=== PATIENT | female | born 1975 | race Caucasian/White ===

== ENCOUNTER → 2018-11-16 | Outpatient (CLI) | payer OTHER ==
[~2018-11-16] VITALS: Ht 170.2 cm; Wt 79.4 kg
[~2018-11-16] MED LIST: IBUPROFEN 800800 M1 PO; LYRICA 75 MG CA75 MG PO; NEURONTIN 300300 M1 PO; XANAX 0.25 MG0.25 MG PO
--- NOTE | ~2018-11-16 | HPC ---
[facility] [address] [place] [address] PAIN MANAGEMENT CONSULTATION Name: MARGARITA BLACK Room #: REG Glo Kyle.#: [id number] Admission: 11/16/18 ������������������ Attend Phys: Ron Goncalves DO Discharge: ������������������ Date of : 77 Report #: [id number] THIS REPORT FOR: //name// CC: [facility] physician/PCP Ron Edwards DATE OF SERVICE: 11/16/2018 CHIEF COMPLAINT: Neck pain, left upper extremity pain with paresthesias. HISTORY OF PRESENT ILLNESS: As you know, the patient is a 43-year-old female who reports acute onset of neck pain, left upper extremity pain and paresthesias began on 06/19/2018. She has sought evaluation through Orthopedics who advised the patient the symptoms are not related to an orthopedic issue and believed to be due to cervical radicular symptoms. She was sent subsequently for imaging of the cervical spine, which shows some changes at the C5-C6 and C6-C7 levels. This was done on 08/05/2018. She has been trying [id number] medication therapy and physical therapy without much improvement. She continues to describe pain that is up to a level of 9/10. Due to lack of improvement with conservative treatments, she was subsequently referred to our clinic to discuss treatment options for suspected cervical radiculopathy. The patient indicates pain is steady and intermittent. Describes the pain as burning, aching and crushing. Places current pain score 3-4/10, daily average of 3-4/10. Worst pain has been is 9/10. The patient states that stress, insomnia and repetitive motions tend to exacerbate symptoms. Physical therapy, traction and gabapentin tend to improve pain. She has been referred to our clinic to discuss potential treatment options for cervical radiculopathy. PAST MEDICAL HISTORY: 1. Degenerative joint disease. 2. Osteoarthritis. 3. Tobacco habituation. PAST SURGICAL HISTORY: 1. Appendectomy in 1996. 2. Excision of a fibroid in 2015. SOCIAL HISTORY: The patient continues to smoke 4 cigarettes per day and has done so for greater than 20 years. She denies significant use of illicit substances, but does report recent use of marijuana. She indicates 6 alcohol beverages per week. The patient is currently employed as a claim handler. She is working, not receiving workmen's compensation nor is she trying to obtain disability benefits. She is not in litigation in regards to pain. [address] [address] PAIN MANAGEMENT CONSULTATION Name: MARGARITA BLACK Room #: REG MARISABELGlo Rice#: [id number] Admission: 11/16/18 ������������������ Attend Phys: Ron Goncalves DO Discharge: ������������������ Date of : 77 Report #: [id number] REVIEW OF SYSTEMS: Positive for wearing corrective eyewear, painful menses, irregular menses, breast pain, numbness and tingling sensations and neck pain. All other review of systems negative per 12-point review of systems other than those listed in history of present illness. Pain impact score 20/70 indicating mild interference of daily activities secondary to pain. ALLERGIES: No known drug allergies. CURRENT MEDICATIONS: Ibuprofen 800 mg t.i.d., alprazolam 0.25 mg p.r.n., gabapentin 300 mg 3 times a day. IMAGING: MRI cervical spine obtained, 08/05/2018, shows C2-C3 unremarkable, C3-C4, C4-C5 unremarkable. C5-C6 shows moderate broad-based disk bulge touching without indenting the spinal cord with mild central canal stenosis measuring 8 mm. There is moderate bilateral neural foraminal stenosis due to uncovertebral hypertrophy. At C6-C7, mild degenerative disk bulge effacing the ventral thecal sac without touching spinal cord, mild central canal stenosis measuring 9 mm, mild neural foraminal narrowing bilaterally due to uncovertebral hypertrophy. PHYSICAL EXAMINATION: VITAL SIGNS: Blood pressure 104/84, pulse 84, respiratory rate 16 and unlabored. The patient is 97% on room air. Height 5 feet 7 inches tall, weight 175 pounds, BMI calculated 27.4. GENERAL: Well-developed, well-nourished, well-hydrated 43-year-old female, appears her stated age. She is placing current pain score 3-4/10. HEENT: Normocephalic, atraumatic. Pupils equal, round, reactive to light. Extraocular muscles are intact. Sclerae nonicteric without injection. NEUROLOGIC: Cranial nerves 2-12 grossly intact. Speech fluent. The patient deemed a good historian. LUNGS: Clear. No wheezes, rhonchi. No rales. CARDIOVASCULAR: Regular. No appreciable gallop, no rub. ABDOMEN: Soft, nontender, nondistended, normoactive bowel sounds. EXTREMITIES: Show no clubbing, no cyanosis, and no edema. MUSCULOSKELETAL: Upper extremity strength equal and symmetrical, 5/5. She is intact to light touch from C5 to T1 dermatomes. Spurling test is positive left, negative right. Cervical traction causes decrease in overall pain. Muscle bulk and tone are symmetrical in comparing left upper extremity to right. Deep tendon reflexes at biceps, brachialis and triceps equal and symmetrical. ASSESSMENT: 1. Cervical radiculopathy. 2. Displacement of cervical intervertebral disk with radiculopathy. 3. Cervical spondylosis with radiculopathy. 4. Cervical degeneration. [address] [place] [address] PAIN MANAGEMENT CONSULTATION Name: MARGARITA BLACK Room #: REG [facility].#: [id number] Admission: 11/16/18 ������������������ Attend Phys: Ron Goncalves DO Discharge: ������������������ Date of : 77 Report #: [id number] 5. Chronic intractable pain. PLAN: 1. Based on today's physical exam and history the patient provides, the description the patient uses in regards to pain as well as the distribution of symptoms, likely source of the patient's pain is cervical radiculopathy. Findings of the examination do correlate to the findings noted at the C5-C6 level with distribution of symptoms along what appears to be the C6 dermatome on the left. We discussed with the patient the treatment options we have available for cervical radiculopathy. The following was discussed with the patient today: We discussed physical therapy, stretching exercises and traction techniques to continue. The patient has been doing these prior and these could be reinitiated and continued for analgesic benefit. She states the traction techniques do work well, but only provide transient improvement. We discussed medication management, escalating her dose of gabapentin or transitioning the patient to Lyrica, amitriptyline, nortriptyline or possibly even Cymbalta. The patient is concerned about medications due to a perceived weight gain with gabapentin. We discussed cervical epidural injections for which the patient was referred to our clinic and ultimately surgical decompression at the C5-C6 level. After reviewing the risks and benefits of all the proposed treatment options, the patient chose to move forward with a cervical epidural injection under fluoroscopic guidance. 2. The patient was advised that due to third constitution party payer restrictions, authorization will be necessary before the patient could undergo first in the series of cervical epidural injections. The patient was advised the preauthorization could take anywhere from 4-7 working days. We begin this process immediately. Once the patient has received authorization to undergo the procedure, we will have her return to undergo the first in a series of cervical epidural injections. 3. We discussed with the patient the use of gabapentin. She states that she believes she may have gained some weight with the medication, though I did advise the patient the medication itself has very few calories. Only 2 ways to gain weight with gabapentin or any of the neuropathic medications is either water retention which has been noted with gabapentin and Lyrica or increasing intake of calories. The patient indicates that she has not increased her caloric intake and thus believes this is more of a water gain issue. This is simply resolved by discontinuing the medication, though at this point I would recommend she continue the use until we are able to have the patient undergo first in a series of cervical epidural injection, at that time adjustments can be suggested. 4. We wish to thank the referring physician for the opportunity to see this patient in consultation. We will see her back once we have received authorization for her to undergo the first in a series of cervical epidural [address] [address] PAIN MANAGEMENT CONSULTATION Name: MARGARITA BLACK Room #: REG LEROY Rice#: [id number] Admission: 11/16/18 ������������������ Attend Phys: Ron Goncalves DO Discharge: ������������������ Date of : 77 Report #: [id number]. Again, we wish to thank you for the opportunity to see this patient in consultation. ��������������������������������������������� ���������������������������������������� By: ��������������������������������������������� 0812 [id number] Ron Goncalves DO /nt
[2018-11-16 12:47] VITALS: BP 104/84
--- NOTE | 2018-11-16 13:07 | NUR ---
Pain Clinic Assessment: 1. History of Osteoarthritis: NECK History of Rheumatoid Arthritis: NONE 2. Height: 5 ft. 7 in. 170.2 cm. Weight: 175.0 lb. oz. 79.380 kg. Patient's BMI: 27.4 3. Vital Signs: BP: 104/84 Pulse: 84 Resp: 16 Temp: 02 Sat: 97 ECG Mon: 4. Pain Intensity: 3-4 5. Fall Risk: Dizziness: N Needs help standing or walking: N Fallen in the last 3 months: N Fall risk comments: 6. Patient on Blood Thinner: None 7. History of Hypertension: N 8. Opioid Therapy greater than 6 weeks: Opiate Contract Signed: 9. Risk Assessment Tool Provided: 10. Functional Assessment Tool: 11. Recreational Drug Use: Current within past 3 mos Drug Type: MARIJUANA Tobacco Use: Current Every Day Smoker Tobacco Type: Cigarettes Amount or Packs/day: 3-4CIGARETTE How Many Years: 20 Alcohol Use: Yes Frequency: Weekly Quant: 1-2
== END ==
LOC: PAIN 12:19
DX: M19.90 Unspecified osteoarthritis, unspecified site (principal); F17.210 Nicotine dependence, cigarettes, uncomplicated; Z90.49 Acquired absence of other specified parts of digestive tract

== ENCOUNTER → 2018-11-23 | Outpatient (CLI) | payer OTHER ==
[~2018-11-23] VITALS: Ht 170.2 cm; Wt 80.8 kg
[2018-11-23 09:18] VITALS: BP 124/77
--- NOTE | 2018-11-23 09:27 | NUR ---
Pain Clinic Assessment: 1. History of Osteoarthritis: NECK History of Rheumatoid Arthritis: NONE 2. Height: 5 ft. 7 in. 170.2 cm. Weight: 178.2 lb. oz. 80.831 kg. Patient's BMI: 27.9 3. Vital Signs: BP: 124/77 Pulse: 94 Resp: 16 Temp: 02 Sat: 100 ECG Mon: 4. Pain Intensity: 2 5. Fall Risk: Dizziness: N Needs help standing or walking: N Fallen in the last 3 months: N Fall risk comments: 6. Patient on Blood Thinner: None 7. History of Hypertension: N 8. Opioid Therapy greater than 6 weeks: N Opiate Contract Signed: 9. Risk Assessment Tool Provided: 0-LOW 10. Functional Assessment Tool: 11. Recreational Drug Use: Current within past 3 mos Drug Type: Tobacco Use: Current Every Day Smoker Tobacco Type: Amount or Packs/day: How Many Years: Alcohol Use: Yes Frequency: Weekly Quant: 4
--- NOTE | 2018-11-30 07:41 | HPC ---
[facility] [address] [address] PAIN MANAGEMENT CONSULTATION Name: MARGARITA BLACK Room #: REG LEROY Wright.#: [id number] Admission: 11/23/18 ������������������ Attend Phys: Ron Goncalves DO Discharge: ������������������ Date of : 77 Report #: [id number] THIS REPORT FOR: //name// CC: [facility] physician/PCP Ron Edwards DATE OF SERVICE: 11/23/2018 CHIEF COMPLAINT: Neck pain, left upper extremity pain and paresthesias. HISTORY OF PRESENT ILLNESS: As you know, the patient is a 43-year-old female referred to our service to discuss treatment options for cervical radiculopathy. She has received preauthorization to undergo cervical epidural injection today after we have discussed multiple treatment options available. She indicates today pain level of around 2/10. She denies any new injury or trauma that may have led to the neck pain and left upper extremity pain that she has been experiencing. She returns today to undergo cervical epidural injection under fluoroscopic guidance. ALLERGIES: No known drug allergies. CURRENT MEDICATIONS: Alprazolam p.r.n. SOCIAL HISTORY: The patient continues to smoke about 4 cigarettes per day. She has done this for greater than 20 years. No significant use of illicit substances, but does report the use of marijuana. Admits to 6 alcoholic beverages per week. She is employed, accompanied by her present in room today. IMAGING: No new imaging available. PHYSICAL EXAMINATION: VITAL SIGNS: Blood pressure 124/77, pulse 94, respiratory rate 16 and unlabored, the patient is 100% on room air. Height 5 feet 7 inches tall, weight 178.2 pounds, BMI calculated 27.9. GENERAL: Well-developed, well-nourished, well-hydrated 43-year-old female appearing her stated age, placing pain score today at 2/10. HEENT: Normocephalic, atraumatic. Pupils are equal, round, and reactive to light. EXTREMITIES: Show no clubbing, no cyanosis and no edema. MUSCULOSKELETAL: Upper extremity strength equal and symmetrical at 5/5, intact to light touch from C5 to T1 dermatomes. Spurling test positive left, negative right. ASSESSMENT: [facility] [address] [place] [address] PAIN MANAGEMENT CONSULTATION Name: MARGARITA BLACK Room #: REG [facility].#: [id number] Admission: 11/23/18 ������������������ Attend Phys: Ron Goncalves DO Discharge: ������������������ Date of : 77 Report #: [id number] 1. Symptomatic cervical radiculopathy. 2. Displacement of a cervical intervertebral disk with radiculopathy. 3. Cervical spondylosis with radiculopathy. 4. Cervical degeneration. 5. Chronic intractable pain. PLAN: 1. The patient returns today in followup visit to undergo first in a series of cervical epidural injections under fluoroscopic guidance to address cervical radicular symptoms. She has been advised on risks and benefits of the procedure. These risks include but are not necessarily limited to bleeding, bruising, infection, worsening pain, no relief of pain, also risk of temporary or permanent muscle weakness, temporary or permanent nerve damage, possible paralysis, post-dural puncture, headache and . The patient states understood and wished to proceed. 2. No medication changes made at today's visit. The patient will continue current medical therapy as previously prescribed. 3. We will see the patient back in followup visit in approximately 3 weeks. At that time, review the efficacy of today's cervical epidural injection and determine if next in the series might be necessary PROCEDURE NOTE: Cervical epidural steroid injection under fluoroscopic guidance. DESCRIPTION OF PROCEDURE: This is the first procedure of the first series that the patient is undergoing. After obtaining written consent, the patient was taken back to the fluoroscopy suite and placed in a prone position with separate pillows under chest and forehead to decrease cervical lordosis. The skin overlying the cervical area was prepped and draped in an aseptic fashion. The cervical vertebral interspace was identified by AP fluoroscopy. The skin and subcutaneous tissue overlying the target site of injection was anesthetized using 3 mL of 1% lidocaine. A 20-gauge 3-1/2 inch Tuohy needle was advanced under fluoroscopic guidance toward the epidural space using a midline approach. The epidural space was identified using a loss of resistance to air technique. After negative aspiration for heme or cerebrospinal fluid, a total of 1 mL of Omnipaque was injected. A cervical epidurogram was confirmed using AP and oblique fluoroscopy. After negative aspiration for heme or cerebrospinal fluid, 5 mL of a solution containing 2 mL 40 mg per mL, 80 mg total triamcinolone, 3 mL of lidocaine 1% was injected. Contrast spread was noted from posterior epidural space. The needle was then retracted approximately [facility] and the needle track was flushed with 1 mL of 1% lidocaine. There were no apparent new sensory deficits in the upper extremities present following the procedure. A sterile bandage was placed over the injection site. [facility] [address] [place] [address] PAIN MANAGEMENT CONSULTATION Name: MARGARITA BLACK [id number] Admission: 11/23/18 ������������������ Attend Phys: Ron Goncalves DO Discharge: ������������������ Date of : 77 Report #: [id number] The heart rate, pulse oximetry and blood pressure were continuously monitored after the procedure. There were no apparent complications. The patient tolerated the procedure well and was carefully escorted in the recovery room in stable condition. After meeting discharge criteria, the patient was discharged home. ��������������������������������������������� <ELECTRONICALLY SIGNED> ���������������������������������������� By: Ron Goncalves DO ��������������������������������������������� 11/30/18 0741 1240 0016 Ron Goncalves DO /nt
== END | disposition home or self-care (01) ==
LOC: PAIN 06:47
DX: M50.10 Cervical disc disorder with radiculopathy, unspecified cervical region (principal); M47.812 Spondylosis without myelopathy or radiculopathy, cervical region; G89.29 Other chronic pain; F17.200 Nicotine dependence, unspecified, uncomplicated; Z79.899 Other long term (current) drug therapy